=== PATIENT | male | born 1965 | race Caucasian/White ===

== ENCOUNTER 2018-04-10 09:18 | Day surgery (SDC) | payer OTHER ==
[~2018-04-10] VITALS: Ht 175.3 cm; Wt 69.2 kg
[2018-04-10] MEDS ORDERED: ANTIVIRALS (10:14)
[2018-04-10] MEDS ORDERED: ASPIRIN (10:14)
[2018-04-10 10:16] VITALS: Ht 175.3 cm; Wt 69.2 kg
[2018-04-10 10:36] VITALS: BP 133/76; PULSE 81; RESP 18
--- NOTE | 2018-04-10 10:57 | PREAC ---
Date/Time of Note Date/Time of Note DATE: 04/10/18 TIME: 10:56 Anesthesia Eval and Record Evaluation Time Pre-Procedure Interview DATE: 04/10/18 TIME: 10:56 Age 53 Sex male NPO: 8 hrs Preoperative diagnosis screening Planned procedure colonoscopy Past Medical History Past Medical History: Includes Infection(s): HIV Surgery & Anesthesia Issues No known issue Meds Anticoagulation: No Beta Iván within 24 hr: No Reason Beta Iván not given: Pt. not on B-Iván Reported Medications [Aspirin] No Conflict Check 04/10/18 [Antivirals ] No Conflict Check 04/10/18 Meds reviewed: Yes Allergies Coded Allergies: No Known Allergy (Unverified , 04/10/18) Allergies Reviewed: Yes Labs/Studies Labs Reviewed: Reviewed by anesthesiologist test: N/A Pre-procedure Exam Last vitals Vital Signs Date Temp Pulse Resp B/P (MAP) Pulse Ox O2 O2 Flow FiO2 Time Delivery Rate 04/10/18 98.1 81 18 133/76 99 Room Air 10:36 (95) Airway: Adequate mouth opening, Adequate thyromental dist Mallampati: Mallampati II Teeth: Normal Lung: Normal Heart: Normal ASA Physical Status ASA physical status: 2 Emergency: None Planned Anesthetic General/MAC: MAC Planned Pain Management Parenteral pain med Pre-operative Attestations Prior to commencing anesthesia and surgery, the patient was re-evaluated, there was verification of: *The patient's identity *The results of appropriate recent lab work and preoperative vital signs *The above evaluation not changing prior to induction *Anesthetic plan, risk benefits, alternative and complications discussed with patient/family; questions answered; patient/family understands, accepts and wishes to proceed. PIERCE SEGURA MD Apr 10, 2018 10:57
[2018-04-10] MEDS ORDERED: LIDOCAINE 2% (SDV) 5 ML INJ ONE (10:58)
[2018-04-10] MEDS ORDERED: PROPOFOL 40 ML ONE (10:58)
[2018-04-10] MEDS ORDERED: PROPOFOL 20 ML ONE (11:00)
[2018-04-10] MEDS ORDERED: ONDANSETRON 4 MG INJ IV PRN (11:30)
[2018-04-10 12:25] VITALS: BP 157/78; PULSE 72; RESP 12
== END 2018-04-10 15:46 | disposition home or self-care (01) ==
LOC: GIL 09:18
PROVIDERS: ATTEND Internal Medicine Gastroenterology
DX: Z12.11 Encounter for screening for malignant neoplasm of colon (principal); K64.8 Other hemorrhoids
CPT/HCPCS: 45378; Z7610